=== PATIENT | female | born 1960 | race Caucasian/White ===

== ENCOUNTER → 2016-08-15 | Outpatient (CLI) | payer OTHER ==
[~2016-08-15] VITALS: Ht 172.7 cm; Wt 57.0 kg
[~2016-08-15] MED LIST: ADULT LOW DOSE81 MG PO; AMOXICILLIN500 M1 PO; BIRTH CONTROL OR; CALTRATE PLUS1 EACH PO; CENTRUM SILVER1 EAC4 PO; FISH OIL 1,0001 EAC5 PO; LEVOTHYROXINE0.05 MG PO; LISINOPRIL-HCT1 EACH PO; MACROBID 100 M100 M1 PO; MOBIC15 MG PO; MULTIVITAMIN W1 EAC5 PO; MULTIVITAMINS PO; NORCO 5-325 TA1 EACH PO; PERCOCET 5-3251 EACH PO; VITAMIN C100 M1 PO; VITAMIN D1000 UNI1 PO; VITAMINC500 PO; VITAMINS; ZOFRAN 4 MG ORAL4 M1 DIS; ZOFRAN ODT4 MG PO
--- NOTE | ~2016-08-15 | HPC ---
[facility] [place] [address] PAIN MANAGEMENT CONSULTATION Name: BRYANNA CLARKCeleste Ross Room #: [facility] [id number] Admission: 08/15/16 Attend Phys: Jules Dougherty DO Discharge: Date of : 60 Report #: [id number] THIS REPORT FOR: //name// CC: Jose Enrique Dougherty The patient is a very pleasant 56-year-old female seen greater than 4 years ago for lumbar radiculopathy and SI joint pain. She was lost to follow up, returns to the pain clinic today noting pain has recurred, low back, right posterior lateral leg down to the foot, notes pain began about 2 months ago without antecedent trauma and overuse. She has continued to take Meloxicam 15 mg for sometime, pain has eclipsed this medication. 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 She continues to do physical therapy, range of motion, core and weight exercises with ongoing pain in low back and right leg. She notes sitting makes the pain worse. She describes constant, aching, sharp pain radiating anywhere from 5-6 on a 0-10 visual analog scale. She notes fortunately no weakness, paresthesias, saddle anesthesia, or bowel or bladder continence changes. REVIEW OF SYSTEMS: A complete review of systems was attached to chart and was gone over with the patient. She is , does not smoke or drink alcohol to excess. History of hypertension, treated with lisinopril; hypothyroidism for which she uses Synthroid. She takes multiple vitamins including calcium. She had a hysterectomy 7 years ago. For a short period of time, took female hormone replacement, she is using none at this time. 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 Pain impact score averages about 4 for all indices queried. PHYSICAL EXAMINATION: Reveals a 5 feet 8 inches, 127 pounds female, BMI is 19.1 kg/m2. Vital signs are stable, blood pressure 132/78, pulse 56, and respirations 18. Cranial nerves 2-12 are grossly intact. Pupils are equal, reactive to light and accommodation. Extraocular muscles are intact. Thyroid is enlarged, no nodules are noted. Upper extremity strength is preserved. Heart is regular and rhythmical without murmur. Lungs are clear to auscultation. Rises from chair using armrest. Gait is tandem. Lumbar flexion is good at 90 degrees. Right leg shows positive straight leg raise at 30 degrees on the right. Slight decreased plantar flexion. Patellar and Achilles reflexes are preserved. There are no recent diagnostic studies available for evaluation at this time. The patient had prior symptoms back in 2012, treated with SI joint and epidural injection with overall improvement of baseline pain. ASSESSMENT: Symptomatic Lumbar radiculopathy. RECOMMENDATIONS: We will seek authorization for lumbar epidural injection under [address] [address] PAIN MANAGEMENT CONSULTATION Name: BRYANNA CLARKCeleste Ross Room #: [facility] [id number] Admission: 08/15/16 Attend Phys: Jules Dougherty DO Discharge: Date of : 60 Report #: [id number] fluoroscopy at L4-L5, if this does not afford adequate relief, we will need MRI of the lumbar spine. Thank you for allowing me to participate in the patient's care. We will plan on moving forward with epidural injection under fluoroscopy at earliest possible date. <ELECTRONICALLY SIGNED> By: Jules Dougherty DO 08/17/16 1251 [id number] 1713 Jules Dougherty DO /nt
[2016-08-15 13:22] VITALS: BP 132/78
== END ==
LOC: PAIN 06:46
DX: M54.16 Radiculopathy, lumbar region (principal); I10 Essential (primary) hypertension; E03.8 Other specified hypothyroidism; Z90.710 Acquired absence of both cervix and uterus; Z79.899 Other long term (current) drug therapy

== ENCOUNTER → 2016-09-02 | Outpatient (CLI) | payer OTHER ==
[~2016-09-02] VITALS: Ht 172.7 cm; Wt 57.2 kg
[2016-09-02 14:06] VITALS: BP 117/70
== END ==
LOC: PAIN 06:55
DX: M47.26 Other spondylosis with radiculopathy, lumbar region (principal); I10 Essential (primary) hypertension